=== PATIENT | male | born 1975 | race Caucasian/White ===

== ENCOUNTER 2021-08-25 12:14 | Emergency (ER) | payer OTHER ==
[~2021-08-25] VITALS: Ht 185.4 cm; Wt 154.6 kg
[2021-08-25 12:18] VITALS: BP 142/94
[2021-08-25] MEDS ORDERED: HYDR-3972 PO (13:39)
== END 2021-08-25 14:13 | disposition home or self-care (01) ==
LOC: ER 12:15
DX: S82.831A Other fracture of upper and lower end of right fibula, initial encounter for closed fracture (principal); T81.33XA Disruption of traumatic injury wound repair, initial encounter; V98.8XXA Other specified transport accidents, initial encounter; Y93.89 Activity, other specified; Y92.89 Other specified places as the place of occurrence of the external cause; Y99.8 Other external cause status
CPT/HCPCS: 29515; 73610; 99283; A6446; A6449

== ENCOUNTER 2021-09-03 09:47 | Day surgery (SDC) | payer OTHER ==
[~2021-09-03] VITALS: Ht 185.4 cm; Wt 154.1 kg
[2021-09-03] VITALS (10 sets, daily range): BP systolic 114–146; BP diastolic 55–87
[~2021-09-03 09:47] MED LIST: ALLO100T PO; ceFAZolin inj. 3,000 MG in normal saline 100ml IV soln 100 ML IV ONE; famotidine 20mg tablet PO ONE; ringers solution, lacted 1,000 ML IV SCH
[2021-09-03 12:04] LABS: BASOPHILS # (AUTO) 0.1 X10'3 (0-0.2); BASOPHILS % (AUTO) 0.8 % (0-1); EOSINOPHILS # (AUTO) 0.2 X10'3 (0-0.9); EOSINOPHILS % (AUTO) 2.5 % (0-6); LYMPHOCYTES # (AUTO) 1.9 X10'3 (1.1-4.8); LYMPHOCYTES % (AUTO) 23.4 % (21-51); MEAN CORPUSCULAR HEMOGLOBIN 30.6 PG (27.0-31.0); MEAN CORPUSCULAR HGB CONC 33.7 g/dL (33.0-36.5); MEAN CORPUSCULAR VOLUME 90.9 FL (78-98); MONOCYTES # (AUTO) 0.5 X10'3 (0-0.9); MONOCYTES % (AUTO) 5.9 % (2-12); NEUTROPHILS # (AUTO) 5.4 X10'3 (1.8-7.7); NEUTROPHILS % (AUTO) 67.4 % (42-75); PRE OP HEMATOCRIT 40.8 % (42.0-52.0); PRE OP HEMOGLOBIN 13.7 g/dL (14.0-17.9); PRE OP PLATELET COUNT 254 X10'3 (140-440); RED BLOOD COUNT 4.49 X10'6 (4.70-6.10); RED CELL DISTRIBUTION WIDTH 13.7 % (11.5-14.5)
[2021-09-03 12:21] LABS: ALBUMIN 3.4 G/DL (3.4-5.0); ALBUMIN/GLOBULIN RATIO 0.8 (1.1-1.5); ALKALINE PHOSPHATASE 103 IU/L (46-116); BLOOD UREA NITROGEN 14 MG/DL (7-18); BUN/CREATININE RATIO 21.9 (5.4-32.0); CHLORIDE 103 MMOL/L (99-107); CREATININE 0.64 MG/DL (0.60-1.10); PRE OP ALT 44 U/L (30-65); PRE OP ANION GAP 10 (8-16); PRE OP BILIRUB, TOTAL 0.8 MG/DL (0.0-1.0); PRE OP GLUCOSE 98 MG/DL (70-104); PRE OP SODIUM 137 MMOL/L (135-145); TOTAL CARBON DIOXIDE 23.6 MMOL/L (24-32); TOTAL PROTEIN 7.7 G/DL (6.4-8.2); eGFR > 90 ML/MIN
[2021-09-03] MEDS ORDERED: BUPIVAcaine 0.5% inj/PF 0 ML ONE (12:26)
[2021-09-03] MEDS ORDERED: cloNIDine hcl/PF 100mcg/ml inj ONE (12:32)
[2021-09-03] MEDS ORDERED: ROPIVAcaine 0.5% (5mg/ml) 30ml vial ONE (12:33)
[2021-09-03] MEDS ORDERED: midazolam 1 mg/ML 2ml injection ONE (12:35)
[2021-09-03] MEDS ORDERED: fentaNYL /PF 50mcg/ml 5ml ampule ONE (12:35)
[2021-09-03] MEDS ORDERED: propofol inj 20 ML IV ONE (12:35)
[2021-09-03 12:40] LABS: PRE OP AST 41 U/L (10-37); PRE OP POTASSIUM 4.3 MMOL/L (3.4-5.1)
[2021-09-03] MEDS ORDERED: morphine 4 MG/ML inj SYRINge IV PRN (12:50)
[2021-09-03] MEDS ORDERED: proCHLORperazine 10 MG/2 ml inj IV PRN (12:50)
[2021-09-03] MEDS ORDERED: ondansetron/PF 4mg/2ml inj IV PRN (12:50)
[2021-09-03] MEDS ORDERED: meperidine/PF 25mg/ml syringe IV PRN ×3 (12:50)
[2021-09-03] MEDS ORDERED: morphine 2 MG/ML inj. syringe IV PRN (12:50)
[2021-09-03] MEDS ORDERED: ringers solution, lacted 1,000 ML IV SCH (12:50)
[2021-09-03] MEDS ORDERED: dexamethasone sod phosphate 10mg/ml inj ONE (13:06)
[2021-09-03] MEDS ORDERED: sevoflurane 250ml liquid IH ONE (13:06)
--- NOTE | 2021-09-03 15:09 | NUR ---
Received from OR via [facility] , accompanied by Anesthesiologist ZIA and report given by Anesthesiolgist. PATIENT WITH 20G PIV IN LEFT HAND RUNNING LR AT 100. DENIES PAIN AT THIS TIME RIGHT LE ELEVATED UPON ARRIVAL- CAST ON AND IN PLACE. PATIENT WITH + CAP REFILL AND TOES ARE PWD, SPLINT IN PLACE AT THIS TIME. Addendum: 09/03/21 at 1543 by Braulio Vanessa RN, RN Amended: Links added.
--- NOTE | 2021-09-03 16:29 | NUR ---
ALL DISCHARGE CRITERIA HAS BEEN MET. VSS, PAIN AT A TOLERABLE LEVEL, VOIDING AND ABLE TO SAFELY AMBULATE AND TRANSFER SELF. IV TAKEN OUT WITHOUT ANY COMPLICATIONS. ALL DISCHARGE INSTRUCTIONS COVERED WITH PATIENT AND ALL QUESTIONS ANSWERED. PATIENT TAKEN OUT VIA WHEELCHAIR TO PERSONAL VEHICLE WHERE FAMILY/FRIEND DROVE PATIENT HOME. Addendum: 09/03/21 at 1647 by Braulio Vanessa RN, RN Amended: Links added.
== END 2021-09-03 16:29 | disposition home or self-care (01) ==
LOC: PAS 09:47
PROVIDERS: ATTEND Podiatrist Foot & Ankle Surgery
DX: S82.841A Displaced bimalleolar fracture of right lower leg, initial encounter for closed fracture (principal); S93.421A Sprain of deltoid ligament of right ankle, initial encounter; M25.371 Other instability, right ankle; G89.18 Other acute postprocedural pain; E66.01 Morbid (severe) obesity due to excess calories; Z68.41 Body mass index [BMI] 40.0-44.9, adult; Z87.891 Personal history of nicotine dependence; Z98.890 Other specified postprocedural states; Z79.899 Other long term (current) drug therapy; Z79.82 Long term (current) use of aspirin; X58.XXXA Exposure to other specified factors, initial encounter; Y93.89 Activity, other specified; Y92.89 Other specified places as the place of occurrence of the external cause; Y99.8 Other external cause status
CPT/HCPCS: 27695; 27814; 27829; 36415; 64445; 64447; 73600; 76000; 76942; 80053; 82948; 85025; 93005; A6223; C1713; J0690; J0735; J1100; J2250; J2704; J2795; J3010; J3490; J7030; J7120; Z7506; Z7508; Z7512; A4618; A6253; A6449; A7000; S0020

== ENCOUNTER 2024-06-29 12:22 | Emergency (ER) | payer OTHER ==
[~2024-06-29] VITALS: Ht 185.4 cm; Wt 140.7 kg
[~2024-06-29 12:22] MED LIST changes: -ceFAZolin inj. 3,000 MG in normal saline 100ml IV soln 100 ML IV ONE; -famotidine 20mg tablet PO ONE; -ringers solution, lacted 1,000 ML IV SCH
[2024-06-29 12:24] VITALS: BP 171/75; PULSE 89; RESP 15; O2SAT 98
[2024-06-29] MEDS: ketorolac trometh 30MG/ML vial 30 MG/ML VIAL IM STA (15:51)
[2024-06-29] MEDS ORDERED: INDO50CA96 PO (16:28)
[2024-06-29 16:31] VITALS: TEMP 98.1
== END 2024-06-29 16:33 | disposition home or self-care (01) ==
LOC: ER 12:22
DX: M25.562 Pain in left knee (principal); M10.9 Gout, unspecified; Z79.899 Other long term (current) drug therapy
CPT/HCPCS: 73564; 96372; 99283; J1885